=== PATIENT | female | born 1965 | race Caucasian/White ===

== ENCOUNTER 2016-12-23 06:12 | Emergency (ER) | payer OTHER ==
[2016-12-23 06:48] VITALS: BP 139/80; PULSE 82; TEMP 98.7; BMI 31.7
[2016-12-23] MEDS ORDERED: ALBUTEROL SO4 2.5/IPRATROPIUM 0.5 INH SOL 3 ML VIAL.NEB. NEB ONE (06:51)
[2016-12-23] MEDS ORDERED: predniSONE 20 MG TABLET (UD) PO ONE (06:51)
[2016-12-23] MEDS ORDERED: AZITHROMYCIN 250 MG TABLET PO ONE (06:51)
--- NOTE | 2016-12-23 06:55 | PDOC ---
History of Present Illness - General Chief Complaint: Cold Symptoms Stated Complaint: COUGH, RESPIRATORY Time Seen by Provider: 12/23/16 06:45 History Source: Patient Exam Limitations: No Limitations - History of Present Illness Initial Comments: 12/23/16 06:52 51yo Female patient w/ PmHx: Sjogren's syndrome, Epilepsy, and Thyroid nodules presents to ED c/o persistent cough, chest pain on deep breathing, and wheezing. Patient reports symptoms began 2 days ago. OTC Robitussin DM with some relief. LNMP: Menopause. Denies smoking. Denies CP, Abd pain, back pain, n/ v/d, rash, or any other complaints at this time. Associated cough. Timing/Duration: reports: yesterday. denies: just prior to arrival, other, constant, changing over time, getting worse, gone now, intermittent, week, this afternoon, this evening, this morning Severity: reports: moderate. denies: mild, severe Possible Cause: Yes: no prior episodes. No: other, allergen exposure, chronic episodes, frequent episodes, illness exposure, irritant gases exposure, occasional episodes, smoke exposure, unknown cause Modifying Factors: worse with: activity, albuterol inhaler, albuterol nebulizer , antibiotics, coughing, lying down, oxygen, rest, other Associated Symptoms: reports: cough, wheezing. denies: denies symptoms, chest pain/soreness, dizziness, earache, facial pain, fever/chills, headache, lightheadedness, muscle aches, nasal congestion, nasal drainage, shortness of breath, sinus infection, sore throat, other Aspirin Received prior to arrival: No: no aspirin today, unknown, 81 mg x 1, 81 mg x 2, 81 mg x 3, 81 mg x 4, 325 mg x 1, provided at home, provided by EMS, provided by ED ASA Contraindications(Core Measure): No: Allergy, Other, Active Blding w/i 24 hrs., Plavix, Receiving Warfarin Past History - Travel Traveled outside of the country in the last 30 days: No Close contact w/someone who was outside of country & ill: No - Past Medical History Home Medications: Ambulatory Orders Acetaminophen W/ Codeine Liq [Tylenol W/Codeine Oral Solution -] 5 ml PO Q8H PRN #120 ml MDD 15 ml 12/23/16 Albuterol Sulfate Inhaler - [Ventolin Hfa Inhaler -] 1 - 2 inh PO Q4H PRN #1 inhaler 12/23/16 Azithromycin [Zithromax -] 250 mg PO DAILY #4 tablet 12/23/16 Prednisone [Prednisone 50 MG TABLETS] 50 mg PO DAILY #4 tablet 12/23/16 - Suicide/Smoking/Psychosocial Hx Smoking History: Never smoked Have you smoked in the past 12 months: No Information on smoking cessation initiated: No Hx Alcohol Use: No Drug/Substance Use Hx: No Respiratory Specific PMHX - Complaint Specific PMHX Angina: No Bronchitis: No Pneumonia: No Pulmonary Embolus: No TB (Tuberculosis): No Review of Systems - Review of Systems Able to Perform ROS?: Yes Is the patient limited Wallisian proficient: No Constitutional: No: Chills, Fever Respiratory: Yes: Cough, Wheezing. No: Shortness of Breath, SOB at Rest, Stridor, Productive cough Cardiac (ROS): No: Chest Pain, Palpitations, Syncope, Chest Tightness ABD/GI: No: Constipated, Diarrhea, Nausea, Poor Appetite, Poor Fluid Intake, Vomiting All Other Systems: Reviewed and Negative *Physical Exam - Vital Signs Last Vital Signs Temp Pulse Resp BP Pulse Ox 98.7 F 82 14 139/80 98 12/23/16 06:27 12/23/16 06:27 12/23/16 06:27 12/23/16 06:27 12/23/16 06:27 - Physical Exam General Appearance: Yes: Nourished, Appropriately Dressed, Mild Distress. No: Apparent Distress, Moderate Distress, Severe Distress HEENT: positive: EOMI, PARISA, Normal ENT Inspection, Normal Voice, Symmetrical, TMs Normal, Pharynx Normal. negative: Pharyngeal Erythema, Tonsillar Exudate, Tonsillar Erythema, Nasal Congestion, Rhinorrhea, Sinus Tenderness, TM Bulging, TM Dull, TM Erythema Neck: positive: Trachea midline, Supple. negative: Stridor, Lymphadenopathy (R) , Lymphadenopathy (L), Rigidity, Tender lateral, Tender midline Respiratory/Chest: positive: Wheezing. negative: Chest Tender, Lungs Clear, Normal Breath Sounds, Respiratory Distress, Accessory Muscle Use, Labored Respiration, Rapid RR, Paradoxal Breathing, Rhonchi, Stridor Cardiovascular: positive: Regular Rhythm, Regular Rate Musculoskeletal: positive: Normal Inspection. negative: CVA Tenderness Extremity: positive: Normal Capillary Refill, Normal Inspection, Normal Range of Motion. negative: Pedal Edema, Swelling, Calf Tenderness, Erythema, Inflammation Integumentary: positive: Normal Color, Dry, Warm. 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, Fully Oriented, Alert, Normal Mood/ Affect, Normal Response, Motor Strength 5/5 *DC/Admit/Observation/Transfer Diagnosis at time of Disposition: Bronchitis - Discharge Dispostion Disposition: HOME Condition at time of disposition: Stable Admit: No - Prescriptions Prescriptions: Prednisone [Prednisone 50 MG TABLETS] 50 mg PO DAILY #4 tablet Acetaminophen W/ Codeine Liq [Tylenol W/Codeine Oral Solution -] 5 ml PO Q8H PRN #120 ml MDD 15 ml PRN Reason: Cough, Fever Albuterol Sulfate Inhaler - [Ventolin Hfa Inhaler -] 1 - 2 inh PO Q4H PRN #1 inhaler PRN Reason: Wheezing, Trouble breathing Azithromycin [Zithromax -] 250 mg PO DAILY #4 tablet - Patient Instructions Printed Discharge Instructions: DI for Acute Bronchitis Additional Instructions: Follow up your primary care provider this week for further evaluation. Take medications as prescribed. Return if symptoms worsen or any concerns for further evaluation. Print Language: VIET[place]ESE
== END 2016-12-23 08:07 | disposition home or self-care (01) ==
LOC: JER 06:12
PROC: 3E0F7GC Introduction of Other Therapeutic Substance into Respiratory Tract, Via Natural or Artificial Opening (ICD-10-PCS; principal; 2016-12-23)
DX: J20.9 Acute bronchitis, unspecified (principal); M35.00 Sjogren syndrome, unspecified; G40.909 Epilepsy, unspecified, not intractable, without status epilepticus; E04.1 Nontoxic single thyroid nodule
CPT/HCPCS: 99281-25

== ENCOUNTER → 2019-11-10 | Day surgery (SDC) | payer OTHER ==
--- NOTE | 2019-11-14 14:31 | PATH ---
Cytology Non-Gynecological Report Patient Name: AURY FARAH [facility]. Rec. #: [id number] /Age/Gender: 1965 (Age: 54) / F Account: [id number] Location: RADIOLOGY INTER Taken: 11/10/2019 Received: 11/10/2019 Reported: 11/14/2019 Physicians: Bogdan Tabares M.D. Specimen(s) Received RIGHT THYROID FNA Clinical History Right lobe nodule 1.52 x 0.86 x 1.57 cm Final Diagnosis THYROID, RIGHT, FINE NEEDLE ASPIRATION: SATISFACTORY FOR EVALUATION B[place]ES[place] CLASS II: BENIGN SMALL FOLLICULAR CELLS AND COLLOID PRESENT, CONSISTENT WITH A BENIGN FOLLICULAR NODULE. . Electronically Signed Alma Reardon M.D. Gross Description Received are eight direct smears, four of which are air-dried and Diff-Quik stained, and four of which are alcohol fixed and Pap stained. Also received is 20 ml of bloody formalin from which one cellblock is prepared.
== END | disposition home or self-care (01) ==
LOC: JRADIR 09:41
PROVIDERS: ATTEND Internal Medicine Endocrinology, Diabetes & Metabolism
PROC: 0G9K3ZX Drainage of Thyroid Gland, Percutaneous Approach, Diagnostic (ICD-10-PCS; principal; 2019-11-10)
DX: E04.1 Nontoxic single thyroid nodule (principal)
CPT/HCPCS: 76942; 88173; 88305-TC

== ENCOUNTER → 2021-10-14 | Day surgery (SDC) | payer OTHER | END | disposition home or self-care (01) | LOC: JRADIR 10:30 | PROVIDERS: ATTEND Internal Medicine Endocrinology, Diabetes & Metabolism | PROC: 0G9H3ZX Drainage of Right Thyroid Gland Lobe, Percutaneous Approach, Diagnostic (ICD-10-PCS; principal; 2021-10-14) | DX: E04.1 Nontoxic single thyroid nodule (principal) | CPT/HCPCS: 10005; 76942; 88173; 88305-TC ==